=== PATIENT | female | born 1940 | race Caucasian/White ===

== ENCOUNTER → 2017-01-03 | Outpatient (CLI) | payer MEDICARE ==
[2017-01-03 11:19] LABS: CH 29.9; CHCM 33.3; HCT 41.5 % (34.0-46.0); HDW 2.79; HGB 13.5 gm/dL (11.4-16.0); MCH 29.2 pg (25.0-35.0); MCHC 32.4 g/dL (31.0-37.0); MCV 90.2 fL (80.0-100.0); Mean Platelet Volume 6.9; RDW 12.7 % (11.5-15.5); WBC 6.6 k/uL (3.8-10.6)
[2017-01-03 11:40] LABS: Anion Gap 9 mmol/L; Blood Urea Nitrogen 17 mg/dL (7-17); Calcium 9.6 mg/dL (8.4-10.2); Carbon Dioxide 27 mmol/L (22-30); Chloride 105 mmol/L (98-107); Glucose 112 mg/dL (74-99); Non-African American GFR(MDRD) >60 (>60 ml/min/1.73 sqM); Potassium 4.7 mmol/L (3.5-5.1); Sodium 141 mmol/L (137-145)
== END | disposition home or self-care (01) ==
LOC: LABWHC1 10:34
PROVIDERS: ATTEND Internal Medicine Clinical Cardiac Electrophysiology
DX: I48.0 Paroxysmal atrial fibrillation (principal)
CPT/HCPCS: 36415; 80048; 85027

== ENCOUNTER → 2018-11-16 | Outpatient (CLI) | payer MEDICARE ==
--- NOTE | 2018-11-16 11:45 | FL ---
EXAMINATION TYPE: FL barium swallow DATE OF EXAM: 11/16/2018 CLINICAL HISTORY: Nausea, reflux, abdominal pain there is increasing for one year. TECHNIQUE: A double contrast esophagram is performed utilizing air and barium. A total of 2.35 twaanda mohinder of fluoroscopic time was utilized during procedure. 104 fluoroscopic images were saved during the examination. COMPARISON: None FINDINGS: The esophagus shows intermittent abnormal motility and emptying into the stomach with inter mittent and contraction seen at the distal esophagus creating a birds beak appearance again intermitt ently only. This is demonstrated on image 22 through 28 condition to other images on the examination such as 56 through 62. The proximal esophagus becomes mildly dilated with delayed passage of contrast however the patient remains asymptomatic. No tertiary contractions are seen of the more proximal eso phagus. No evidence of hiatal hernia or stricture noted. No significant gastroesophageal reflux was seen during real time performance of this study. IMPRESSION: Intermittent distal esophageal spasm creating a persistent cystic appearance intermittent ly with delayed passage of contrast in mild proximal esophageal dilatation. Causes of esophageal or g astric malignancy, compliant nonobstructive esophageal stricture, or neuropathy/neuromuscular disorde r are possible. Endoscopy is recommended with manometry.
== END | disposition home or self-care (01) ==
LOC: RADUSWWP 08:35
PROVIDERS: ATTEND Surgery Plastic and Reconstructive Surgery
DX: K22.4 Dyskinesia of esophagus (principal); K21.9 Gastro-esophageal reflux disease without esophagitis; Z88.1 Allergy status to other antibiotic agents; Z88.8 Allergy status to other drugs, medicaments and biological substances
CPT/HCPCS: 74220

== ENCOUNTER 2018-11-29 07:34 | Day surgery (SDC) | payer MEDICARE ==
[2018-11-24 17:30] VITALS: BMI 22.8
[~2018-11-29 07:34] MED LIST: LACTATED RINGERS 1,000 ML IV ONE
[2018-11-29] MEDS ORDERED: LACTATED RINGERS 1,000 ML IV SCH (07:41)
[2018-11-29] MEDS ORDERED: LIDOCAINE 1% 20 ML VIAL (10MG/ML) FOR IV START INTRADERMA PRN (07:41)
[2018-11-29 07:47] VITALS: TEMP 98.5
[2018-11-29] MEDS ORDERED: LIDOCAINE 1% INJ 10MG/ML (20 ML MDV) ONE (08:08)
[2018-11-29] MEDS ORDERED: PROPOFOL 10 MG/ML 20 ML VIAL IV ONE (08:08)
--- NOTE | 2018-11-29 08:12 | P.GSHP ---
History of Present Illness H&P Date: 11/29/18 CHIEF COMPLAINT: GERD HISTORY OF PRESENT ILLNESS: The patient is a 78-year-old female who presents reports gastroesophageal reflux disease. Upper endoscopy was offered for further evaluation and management. PAST MEDICAL HISTORY: Please see list. PAST SURGICAL HISTORY: Please see list. MEDICATIONS: Please see list. ALLERGIES: Please see list. SOCIAL HISTORY: No illicit drug use FAMILY HISTORY: No reports of Crohn disease or ulcerative colitis. REVIEW OF ORGAN SYSTEMS: CONSTITUTIONAL: No reports of fevers or chills. GI: Denies any blood in stools or constipation. PHYSICAL EXAM: VITAL SIGNS: Stable GENERAL: Well-developed and pleasant in no acute distress. HEENT: No scleral icterus. Extraocular movements grossly intact. Moist buccal mucosa. NECK: Supple without lymphadenopathy. CHEST: Unlabored respirations. Equal bilateral excursions. CARDIOVASCULAR: Regular rate and rhythm. Distal 2+ pulses. ABDOMEN: Soft, nondistended. MUSCULOSKELETAL: No clubbing, cyanosis, or edema. ASSESSMENT: 1. Gastroesophageal reflux disease PLAN: 1. Recommend proceeding with an upper endoscopy Past Medical History Past Medical History: Atrial Fibrillation, Asthma, Diabetes Mellitus, GERD/Reflux History of Any Multi-Drug Resistant Organisms: None Reported Past Surgical History: Cardiac Ablation, Heart Catheterization, Hysterectomy, Tonsillectomy Additional Past Surgical History / Comment(s): CATARACTS-BOTH EYES See Dr. Molina's H&P. 01/17/17 Ablation Past Anesthesia/Blood Transfusion Reactions: Motion Sickness Smoking Status: Never smoker - Past Family History Mother Family Medical History: Diabetes Mellitus Daughter(s) Family Medical History: Cancer Additional Family Medical History / Comment(s): breast cancer Medications and Allergies Home Medications Medication Instructions Recorded Confirmed Type Metoprolol Tartrate [Lopressor] 25 mg PO BID 06/25/15 11/29/18 History Omeprazole 20 mg PO DAILY PRN 06/27/15 11/29/18 History Apixaban [Eliquis] 5 mg PO BID 01/13/17 11/29/18 History Albuterol Inhaler [Ventolin Hfa 1 puff INHALATION DAILY PRN 11/24/18 11/29/18 History Inhaler] Albuterol Nebulized [Ventolin 2.5 mg INHALATION BID 11/24/18 11/29/18 History Nebulized] Liraglutide [Victoza 2-Flaquito] 0.6 mg SQ DAILY 11/24/18 11/29/18 History Allergies Allergy/AdvReac Type Severity Reaction Status Date / Time No Known Allergies Allergy Verified 11/29/18 07:48 Surgical - Exam Vital Signs Temp Pulse Resp BP Pulse Ox 98.5 F 77 12 172/72 98 11/29/18 07:46 11/29/18 07:46 11/29/18 07:46 11/29/18 07:46 11/29/18 07:46
[2018-11-29 08:26] VITALS: PULSE 65
--- NOTE | 2018-11-29 08:27 | P.PCN ---
Date of Procedure: 11/29/18 Description of Procedure: PREOPERATIVE DIAGNOSIS: Gastroesophageal reflux disease. POSTOPERATIVE DIAGNOSIS: Gastritis. Gastroesophageal reflux disease. Diaphragmatic hiatal hernia OPERATION: Esophagogastroduodenoscopy with biopsies along antrum and distal esophagus SURGEON: Purvi Ames MD ANESTHESIA: MAC. INDICATIONS: The patient is a 78-year-old female who presents with a history of reflux disease. Benefits and risks of the procedure were described. Informed consent was obtained. DESCRIPTION: The patient was brought into the endoscopy suite and laid in the left lateral decubitus position. An Olympus gastroscope was passed along the posterior oropharynx down to the distal esophagus where the squamocolumnar junction was encountered at 30 cm from the incisors. The stomach was entered and no bile reflux was found. Additional findings are listed below. Biopsies with cold forceps were obtained of the antrum. The first through third portion of the duodenum was examined and unremarkable. Retroflexion of the scope confirmed Hill grade 4 lower esophageal valve. The squamocolumnar junction demonstrated LA grade C erosive esophagitis. The stomach was desufflated. The patient tolerated the procedure well. FINDINGS: Squamocolumnar junction 30 cm from the incisors. Diaphragmatic hiatus at 35 cm. Hiatal hernia, 5 cm Hill grade 4 lower esophageal valve. LA grade C erosive esophagitis. No active duodenitis. Chronic gastritis RECOMMENDATIONS: Upper endoscopy as needed. Recommend repair of hiatal hernia Plan - Discharge Summary Discharge Rx Participant: No New Discharge Prescriptions: No Action Metoprolol Tartrate [Lopressor] 25 mg PO BID Omeprazole 20 mg PO DAILY PRN PRN Reason: Heartburn Apixaban [Eliquis] 5 mg PO BID Albuterol Nebulized [Ventolin Nebulized] 2.5 mg INHALATION BID Albuterol Inhaler [Ventolin Hfa Inhaler] 1 puff INHALATION DAILY PRN PRN Reason: Dyspnea Liraglutide [Victoza 2-Flaquito] 0.6 mg SQ DAILY Discharge Medication List Metoprolol Tartrate [Lopressor] 25 mg PO BID 06/25/15 [History] Omeprazole 20 mg PO DAILY PRN 06/27/15 [History] Apixaban [Eliquis] 5 mg PO BID 01/13/17 [History] Albuterol Inhaler [Ventolin Hfa Inhaler] 1 puff INHALATION DAILY PRN 11/24/18 [History] Albuterol Nebulized [Ventolin Nebulized] 2.5 mg INHALATION BID 11/24/18 [History] Liraglutide [Victoza 2-Flaquito] 0.6 mg SQ DAILY 11/24/18 [History] Follow up Appointment(s)/Referral(s): Purvi Ames MD [STAFF PHYSICIAN] - 12/12/18 Patient Instructions/Handouts: *Surgery [facility] - (Anesthesia) Endoscopy Discharge Instructions, Hiatal Hernia (DC) Activity/Diet/Wound Care/Special Instructions: Start ELIQUIS in 3 days, 12/02/18 Discharge Disposition: HOME SELF-CARE
[2018-11-29 08:46] VITALS: RESP 18
[2018-11-29 08:50] VITALS: BP 116/52
[2018-11-29 08:53] LABS: Glucose,Whole Blood 124 mg/dL (75-99)
== END 2018-11-29 09:23 | disposition home or self-care (01) ==
LOC: ORWHC2ENDO 07:34
PROVIDERS: ATTEND Surgery Plastic and Reconstructive Surgery
DX: K29.50 Unspecified chronic gastritis without bleeding (principal); K44.9 Diaphragmatic hernia without obstruction or gangrene; K22.10 Ulcer of esophagus without bleeding; K21.0 Gastro-esophageal reflux disease with esophagitis; I10 Essential (primary) hypertension; J44.9 Chronic obstructive pulmonary disease, unspecified; I48.91 Unspecified atrial fibrillation; E11.9 Type 2 diabetes mellitus without complications; Z79.01 Long term (current) use of anticoagulants; Z79.899 Other long term (current) drug therapy; Z90.710 Acquired absence of both cervix and uterus; Z90.89 Acquired absence of other organs; Z98.41 Cataract extraction status, right eye; Z98.42 Cataract extraction status, left eye; Z80.3 Family history of malignant neoplasm of breast
CPT/HCPCS: 88305; 88312; 43239; J2001; J2704

== ENCOUNTER → 2019-01-10 | Outpatient (CLI) | payer MEDICARE ==
--- NOTE | 2019-01-10 13:12 | FL ---
EXAMINATION TYPE: FL barium swallow w video DATE OF EXAM: 01/10/2019 COMPARISON: NONE HISTORY: Rapid filling, dysphasia especially with solids TECHNIQUE: Fluoroscopy. FINDINGS: Fluoroscopic guidance was provided for the procedure performed in conjunction with the [facility] pathology department. Please see complete report forthcoming from the Speech Pathology departmen t. Various consistencies from thin liquid to solids were administered. Fluoroscopy time 1 minute 18 seconds. Number of images: 0. No aspiration was evident. There may been some transient penetration with thin liquids a questionable clinical significance during the exam. No significant pooling was observed in the vallecula. There was normal propulsion of the bolus. IMPRESSION: 1. Essentially normal swallowing study.
== END | disposition home or self-care (01) ==
LOC: RADFLMAIN 11:10
PROVIDERS: ATTEND Surgery Plastic and Reconstructive Surgery
DX: R13.10 Dysphagia, unspecified (principal)
CPT/HCPCS: 74230

== ENCOUNTER 2019-01-24 08:22 | Emergency (ER) | payer MEDICARE ==
[2019-01-24 08:28] VITALS: TEMP 97.8
[2019-01-24] MEDS: ONDANSETRON 4 MG/2 ML VIAL IVP STA (09:06)
[2019-01-24] MEDS: MORPHINE SULFATE 2 MG/ML SYRINGE IVP ONE (09:06)
--- NOTE | 2019-01-24 09:13 | ED ---
Fall HPI - General Chief Complaint: Fall Stated Complaint: fall Time Seen by Provider: 01/24/19 08:32 Source: patient, RN notes reviewed Mode of arrival: ambulatory Limitations: no limitations - History of Present Illness Initial Comments: This a 78-year-old female presents emergency Department chief complaint of upper and lower back pain. Patient states that she slipped on some steps that had ice on it yesterday. She fills directly onto her back, rib region. Patient denies any head injury no loss conscious. She states that she woke up with worsening pain in her back, ribs extension the right side. Patient states that she takes Eliquis for history of A. fib. Denies any current headache, dizziness, blurred vision, hemoptysis, hematuria, melena or hematochezia. Patient states that she did not take anything for pain. - Related Data Home Medications Medication Instructions Recorded Confirmed Metoprolol Tartrate [Lopressor] 25 mg PO BID 06/25/15 01/24/19 Apixaban [Eliquis] 5 mg PO DAILY 01/13/17 01/24/19 Albuterol Nebulized [Ventolin 2.5 mg INHALATION BID 11/24/18 01/24/19 Nebulized] Liraglutide [Victoza 2-Flaquito] 0.6 mg SQ DAILY 11/24/18 01/24/19 Previous Rx's Medication Instructions Recorded Omeprazole 40 mg PO DAILY #90 capsule. 11/29/18 Hydrocodone/Acetaminophen [[place] 1 tab PO Q6HR PRN #12 tab 01/24/19 5-325] Allergies Allergy/AdvReac Type Severity Reaction Status Date / Time No Known Allergies Allergy Verified 01/24/19 10:04 Review of Systems ROS Statement: Those systems with pertinent positive or pertinent negative responses have been documented in the HPI. ROS Other: All systems not noted in ROS Statement are negative. Past Medical History Past Medical History: Atrial Fibrillation, Asthma, GERD/Reflux, Hypertension, Thyroid Disorder Additional Past Medical History / Comment(s): "esophagus doesn't work" History of Any Multi-Drug Resistant Organisms: None Reported Past Surgical History: Ablation, Heart Catheterization, Hysterectomy, Tonsillectomy Additional Past Surgical History / Comment(s): EGD Past Anesthesia/Blood Transfusion Reactions: Motion Sickness Past Psychological History: No Psychological Hx Reported Smoking Status: Never smoker Past Alcohol Use History: Rare Past Drug Use History: None Reported - Past Family History Mother Family Medical History: Diabetes Mellitus Daughter(s) Family Medical History: Cancer Additional Family Medical History / Comment(s): breast cancer General Exam Limitations: no limitations General appearance: alert, in no apparent distress Head exam: Present: atraumatic, normocephalic, normal inspection Eye exam: Present: normal appearance, PERRL, EOMI. Absent: scleral icterus, conjunctival injection, periorbital swelling ENT exam: Present: normal exam, normal oropharynx, mucous membranes moist, TM's normal bilaterally, normal external ear exam Neck exam: Present: normal inspection, full ROM. Absent: tenderness, meningismus, lymphadenopathy Respiratory exam: Present: normal lung sounds bilaterally, chest wall tenderness (Mild right lateral to posterior). Absent: respiratory distress, wheezes, rales, rhonchi, stridor Cardiovascular Exam: Present: regular rate, normal rhythm, normal heart sounds. Absent: systolic murmur, diastolic murmur, rubs, gallop, clicks GI/Abdominal exam: Present: soft. Absent: distended, tenderness, guarding, rebound Extremities exam: Present: normal inspection, full ROM, normal capillary refill. Absent: tenderness, pedal edema, joint swelling, calf tenderness Back exam: Present: full ROM, tenderness, paraspinal tenderness. Absent: CVA tenderness (R), CVA tenderness (L), vertebral tenderness Neurological exam: Present: alert, oriented X3, CN II-XII intact, reflexes normal. Absent: motor sensory deficit Skin exam: Present: warm, dry, intact, normal color. Absent: rash Course Vital Signs 01/24/19 01/24/19 01/24/19 08:23 08:28 09:28 Temperature 97.8 F Pulse Rate 60 Respiratory 18 20 20 Rate Blood Pressure 155/80 O2 Sat by Pulse 100 Oximetry 01/24/19 10:00 Temperature Pulse Rate 75 Respiratory 20 Rate Blood Pressure 133/70 O2 Sat by Pulse 95 Oximetry Medical Decision Making - Medical Decision Making Patient's labwork is unremarkable. CT shows evidence of rib fractures 8 through 10 on the right. Patient is currently stable she feels comfortable discharged with pain medication, incentive spirometry. She'll follow-up with her PCP and return for any worsening symptoms. - Lab Data Result diagrams: 01/24/19 09:00 01/24/19 09:00 Lab Results 01/24/19 01/24/19 Range/Units 09:00 09:00 WBC 8.2 (3.8-10.6) k/uL RBC 4.50 (3.80-5.40) m/uL Hgb 13.8 (11.4-16.0) gm/dL Hct 40.0 (34.0-46.0) % MCV 89.0 (80.0-100.0) fL MCH 30.6 (25.0-35.0) pg MCHC 34.4 (31.0-37.0) g/dL RDW 13.4 (11.5-15.5) % Plt Count 218 (150-450) k/uL Neutrophils % 75 % Lymphocytes % 18 % Monocytes % 5 % Eosinophils % 1 % Basophils % 0 % Neutrophils # 6.1 (1.3-7.7) k/uL Lymphocytes # 1.5 (1.0-4.8) k/uL Monocytes # 0.4 (0-1.0) k/uL Eosinophils # 0.1 (0-0.7) k/uL Basophils # 0.0 (0-0.2) k/uL Sodium 140 (137-145) mmol/L Potassium 4.5 (3.5-5.1) mmol/L Chloride 105 (98-107) mmol/L Carbon Dioxide 25 (22-30) mmol/L Anion Gap 10 mmol/L BUN 18 H (7-17) mg/dL Creatinine 0.70 (0.52-1.04) mg/dL Est GFR (CKD-EPI)AfAm >90 (>60 ml/min/1.73 sqM) Est GFR (CKD-EPI)NonAf 84 (>60 ml/min/1.73 sqM) Glucose 123 H (74-99) mg/dL Calcium 10.1 (8.4-10.2) mg/dL Total Bilirubin 0.6 (0.2-1.3) mg/dL AST 23 (14-36) U/L ALT 19 (9-52) U/L Alkaline Phosphatase 69 (38-126) U/L Total Protein 7.6 (6.3-8.2) g/dL Albumin 4.4 (3.5-5.0) g/dL Disposition Clinical Impression: Fall, Multiple fractures of ribs of right side Disposition: HOME SELF-CARE Condition: Stable Instructions (If sedation given, give patient instructions): Rib Fracture (ED) Additional Instructions: Please return to the Emergency Department if symptoms worsen or any other concerns. Prescriptions: Hydrocodone/Acetaminophen [[place] 5-325] 1 tab PO Q6HR PRN #12 tab PRN Reason: Pain Is patient prescribed a controlled substance at d/c from ED?: No Referrals: Landen Weiss DO [Primary Care Provider] - 1-2 days Time of Disposition: 10:48
[2019-01-24 09:32] LABS: Basophils % (A) 0 %; Eosinophils # (A) 0.1 k/uL (0-0.7); Eosinophils % (A) 1 %; HGB 13.8 gm/dL (11.4-16.0); Lymphocytes # (A) 1.5 k/uL (1.0-4.8); Lymphocytes % (A) 18 %; MCH 30.6 pg (25.0-35.0); MCHC 34.4 g/dL (31.0-37.0); Mean Platelet Volume 7.9; Monocytes # (A) 0.4 k/uL (0-1.0); Monocytes % (A) 5 %; Neutrophils # (A) 6.1 k/uL (1.3-7.7); Neutrophils % (A) 75 %; Platelet Count 218 k/uL (150-450); RDW 13.4 % (11.5-15.5); WBC 8.2 k/uL (3.8-10.6)
[2019-01-24 09:38] LABS: ALT 19 U/L (9-52); AST 23 U/L (14-36); African American GFR (CKD) >90 (>60 ml/min/1.73 sqM); Albumin 4.4 g/dL (3.5-5.0); Alkaline Phosphatase 69 U/L (38-126); Anion Gap 10 mmol/L; Blood Urea Nitrogen 18 mg/dL (7-17); Calcium 10.1 mg/dL (8.4-10.2); Carbon Dioxide 25 mmol/L (22-30); Chloride 105 mmol/L (98-107); Glucose 123 mg/dL (74-99); Non-African American GFR(CKD) 84 (>60 ml/min/1.73 sqM); Potassium 4.5 mmol/L (3.5-5.1); Sodium 140 mmol/L (137-145); Total Bilirubin 0.6 mg/dL (0.2-1.3); Total Protein 7.6 g/dL (6.3-8.2)
[2019-01-24 09:48] VITALS: RESP 20
[2019-01-24 10:11] VITALS: PULSE 75
--- NOTE | 2019-01-24 10:34 | CT ---
EXAMINATION TYPE: CT ChestAbdPelvis w con DATE OF EXAM: 01/24/2019 COMPARISON: None HISTORY: fall, right side bruising/pain, on blood thinner CT DLP: 838.5 mGycm CONTRAST: Contrast enhanced Trauma CT of the Chest, Abdomen and Pelvis is performed with IV Contrast, patient i njected with 100 mL of Isovue 370. Chest: LUNGS: There is no evidence for pneumothorax. The lungs are clear and free of focal contusion or ate lectasis. No pleural effusion MEDIASTINUM: Thoracic aorta is of normal caliber without CT evidence to suggest traumatic induced ao rtic injury. No mediastinal fluid or blood. No pericardial fluid or cardia abnormality. HILAR STRUCTURES: No evidence for mass. No hilar adenopathy is appreciated. OTHER: No significant abnormality. OSSEOUS: Right-sided rib fractures of the right ribs 8 through 10. Mild pleural thickening. No signif icant hematoma. CT ABDOMEN AND PELVIS FINDINGS: LIVER/GB: No focal laceration, contusion or subcapsular hemorrhage. No calcified gallstones. No s pace occupying hepatic lesion. Biliary tree is of normal caliber. PANCREAS: No evidence for transection. No inflammation. No distinct mass. SPLEEN: No focal laceration, contusion or subcapsular hemorrhage. ADRENALS: No hemorrhage. No nodule. No thickening. KIDNEYS/BLADDER: No focal laceration, contusion or subcapsular hemorrhage. No hydronephrosis. No n ephrolithiasis. No disctinct renal mass. BOWEL: Bowel is intact. No evidence for pneumoperitoneum. GENITAL ORGANS: No gross abnormality. LYMPH NODES: No greater than 1cm abdominal or pelvic lymph nodes areappreciated. AORTA: No traumatic aortic injury visualized. OSSEOUS STRUCTURES: No displaced fracture seen. OTHER: No evidence for hemoperitoneum. IMPRESSION: 1. Right-sided rib fractures of the right ribs 8 through 10. Mild pleural thickening. No significant hematoma. No pulmonary contusion or pneumothorax. 2. No evidence for traumatic injury to the abdomen or pelvis.
[2019-01-24] MEDS: MORPHINE SULFATE 4 MG/ML SYRINGE IVP STA (10:58)
[2019-01-24 11:08] VITALS: BP 130/88
== END 2019-01-24 11:17 | disposition home or self-care (01) ==
LOC: EC 08:22
DX: S22.41XA Multiple fractures of ribs, right side, initial encounter for closed fracture (principal); I48.91 Unspecified atrial fibrillation; J45.909 Unspecified asthma, uncomplicated; I10 Essential (primary) hypertension; Z79.01 Long term (current) use of anticoagulants; Z79.84 Long term (current) use of oral hypoglycemic drugs; Z79.899 Other long term (current) drug therapy; W00.1XXA Fall from stairs and steps due to ice and snow, initial encounter; Y92.009 Unspecified place in unspecified non-institutional (private) residence as the place of occurrence of the external cause
CPT/HCPCS: 36415; 80053; 85025; 71260; 74177; 99284; 96374; 96375; 96376; J2270 ×2; J2405; Q9967

== ENCOUNTER 2019-07-13 14:42 | Emergency (ER) | payer MEDICARE ==
[2019-07-13 14:58] VITALS: TEMP 97.8
[2019-07-13] MEDS ORDERED: ASPIRIN 81 MG PO STA (15:20)
--- NOTE | 2019-07-13 15:33 | ED ---
General Adult HPI - General Chief complaint: Recheck/Abnormal Lab/Rx Stated complaint: dizzy spells Time Seen by Provider: 07/13/19 15:07 Source: patient, family Mode of arrival: ambulatory Limitations: no limitations - History of Present Illness Initial comments: Dictation was produced using E la Carte dictation software. please excuse any grammatical, word or spelling errors. This patient was cared for during a federal and state declared state of emergency secondary to Covid 19 Chief Complaint: 79-year-old female past medical history of atrial fibrillation, dysphasia, hypertension presents with abnormal EKG. History of Present Illness: Patient 79-year-old female she presents today with abnormal EKG. Over the last 2 months patient has been suffering from dizziness especially with standing. She went to her primary care physician's office to be evaluated. She has known history of carotid artery disease. She does not know how much of a block and she has. She was concerned about her dizziness and preferred to follow-up with her job estimator however because there was difficulty scheduling appointment she instead went to go see her primary care physician. An EKG was performed showing abnormalities. Her primary care andi malik did not like how it looked and made patient come to the emergency department. Patient reports that her primary care physician compared to previous EKG. Patient was told that there was abnormalities that warranted emergency room evaluation. Patient has history of atrial fibrillation. She r eports that she had an ablation procedure however still continues to be on apixaban. She's been suffering from lightheadedness only when standing. She states it doesn't always occur with standing, only sometimes depending on the day. Patient denies any chest symptoms. No numbness or paresthesias to the arms or legs. Denies any numbness to the jaw or shoulder. No associated diaphoresis. Patient currently feels asymptomatic. Denies any weakness to the arms or legs. The ROS documented in this emergency department record has been reviewed and confirmed by me. Those systems with pertinent positive or negative responses have been documented in the HPI. All other systems are other negative and/or noncontributory. PHYSICAL EXAM: General Impression: Alert and oriented x3, not in acute distress HEENT: Normocephalic atraumatic, extra-ocular movements intact, pupils equal and reactive to light bilaterally, mucous membranes moist. Cardiovascular: Heart regular rate and rhythm Chest: Able to complete full sentences, no retractions, no tachypnea Abdomen: abdomen soft, non-tender, non-distended, no organomegaly Musculoskeletal: Pulses present and equal in all extremities, no peripheral edema Motor: no focal deficits noted Neurological: CN II-XII grossly intact, no focal motor or sensory deficits noted Skin: Intact with no visualized rashes Psych: Normal affect and mood ED course: 79-year-old female sent in from her primary care physician's office for abnormal EKG. Signs upon arrival shows heart rate of 110, worse vital signs within acceptable limits. EKG shows diffuse ST segment elevations in 2-3 aVF and V3 to V6. Is also T-wave inversion in aVL. When compared to EKG from 01/18/2017 this appears to be patient's baseline. At this point considering EKG appears to be baseline and patient not having any chest symptoms whatsoever highly doubt that EKG represents any acute cardiac processes. Furthermore, patient's dizziness according the patient is only positional. She has known carotid artery disease. Perhaps this is symptoms of her carotid artery disease that exacerbated with standing from a sitting position. Repeat EKG was performed approximately 30 minutes after initial EKG showed no dynamic changes. Ventricular rate 63, normal sinus rhythm,. Interval 200, QRS 86, QTC 421 EKG appears to be baseline. Laboratory evaluation obtained. CBC, coag panel, metabolic panel is unremarkable. Cardiac enzymes negative. Urinalysis x-rays nonacute. Orthostatic vital signs were obtained. There did appear to be some decrease in blood pressure with standing. This is likely attribute it to patient's metoprolol. At this point suggested that perhaps she symptoms are secondary to metoprolol. At this point considering patient symptoms are chronic and with mild symptoms she is advised to follow-up with her job estimator and primary care physician for adjustments to her medications. She is agreeable for discharge. At this point no high-risk features identified. Patient will be discharge. return parameters discussed. EKG interpretation: Ventricular rate 60, normal sinus rhythm,. Interval 98, QRS 90, QTC 416. No MA prolongation, no QTC prolongation, no ST or T-wave changes noted. EKG compared to 01/18/2017 showing no changes. Overall, this EKG is unremarkable - Related Data Home Medications Medication Instructions Recorded Confirmed Metoprolol Tartrate [Lopressor] 25 mg PO BID 06/25/15 01/24/19 Apixaban [Eliquis] 5 mg PO DAILY 01/13/17 01/24/19 Albuterol Nebulized [Ventolin 2.5 mg INHALATION BID 11/24/18 01/24/19 Nebulized] Liraglutide [Victoza 2-Flaquito] 0.6 mg SQ DAILY 11/24/18 01/24/19 Previous Rx's Medication Instructions Recorded Omeprazole 40 mg PO DAILY #90 capsule. 11/29/18 Hydrocodone/Acetaminophen [Faucett 1 tab PO Q6HR PRN #12 tab 01/24/19 5-325] Allergies Allergy/AdvReac Type Severity Reaction Status Date / Time No Known Allergies Allergy Verified 07/13/19 14:58 Review of Systems ROS Statement: Those systems with pertinent positive or pertinent negative responses have been documented in the HPI. ROS Other: All systems not noted in ROS Statement are negative. Past Medical History Past Medical History: Atrial Fibrillation, Asthma, GERD/Reflux, Hypertension, Thyroid Disorder Additional Past Medical History / Comment(s): "esophagus doesn't work" History of Any Multi-Drug Resistant Organisms: None Reported Past Surgical History: Ablation, Heart Catheterization, Hysterectomy, Tonsillectomy Additional Past Surgical History / Comment(s): EGD Past Anesthesia/Blood Transfusion Reactions: Motion Sickness Past Psychological History: No Psychological Hx Reported Smoking Status: Never smoker Past Alcohol Use History: Rare Past Drug Use History: None Reported - Past Family History Mother Family Medical History: Diabetes Mellitus Daughter(s) Family Medical History: Cancer Additional Family Medical History / Comment(s): breast cancer General Exam Limitations: no limitations Course Vital Signs 07/13/19 07/13/19 14:53 15:36 Temperature 97.8 F Pulse Rate 110 H Pulse Rate [ 88 Right Sitting] Pulse Rate [ 91 Right Standing] Pulse Rate [ 89 Right Supine] Respiratory 18 Rate Blood Pressure 146/55 Blood Pressure 152/68 [Right Arm Sitting] Blood Pressure 137/82 [Right Arm Standing] Blood Pressure 163/75 [Right Arm Supine] O2 Sat by Pulse 98 Oximetry Medical Decision Making - Lab Data Result diagrams: 07/13/19 15:31 07/13/19 15:31 Lab Results 07/13/19 07/13/19 07/13/19 Range/Units 15:31 15:31 15:31 WBC 5.5 (3.8-10.6) k/uL RBC 4.29 (3.80-5.40) m/uL Hgb 12.6 (11.4-16.0) gm/dL Hct 39.6 (34.0-46.0) % MCV 92.1 (80.0-100.0) fL MCH 29.2 (25.0-35.0) pg MCHC 31.7 (31.0-37.0) g/dL RDW 12.9 (11.5-15.5) % Plt Count 212 (150-450) k/uL Neutrophils % 58 % Lymphocytes % 30 % Monocytes % 5 % Eosinophils % 5 % Basophils % 1 % Neutrophils # 3.2 (1.3-7.7) k/uL Lymphocytes # 1.6 (1.0-4.8) k/uL Monocytes # 0.3 (0-1.0) k/uL Eosinophils # 0.3 (0-0.7) k/uL Basophils # 0.0 (0-0.2) k/uL PT 10.3 (9.0-12.0) sec INR 1.0 (<1.2) APTT 25.6 (22.0-30.0) sec Sodium 138 (137-145) mmol/L Potassium 4.2 (3.5-5.1) mmol/L Chloride 103 (98-107) mmol/L Carbon Dioxide 28 (22-30) mmol/L Anion Gap 7 mmol/L BUN 16 (7-17) mg/dL Creatinine 0.57 (0.52-1.04) mg/dL Est GFR (CKD-EPI)AfAm >90 (>60 ml/min/1.73 sqM) Est GFR (CKD-EPI)NonAf 90 (>60 ml/min/1.73 sqM) Glucose 83 (74-99) mg/dL Calcium 9.3 (8.4-10.2) mg/dL Magnesium 2.1 (1.6-2.3) mg/dL Total Bilirubin 0.6 (0.2-1.3) mg/dL AST 23 (14-36) U/L ALT 15 (4-34) U/L Alkaline Phosphatase 57 (38-126) U/L Troponin I (0.000-0.034) ng/mL Total Protein 6.9 (6.3-8.2) g/dL Albumin 4.2 (3.5-5.0) g/dL 07/13/19 Range/Units 15:31 WBC (3.8-10.6) k/uL RBC (3.80-5.40) m/uL Hgb (11.4-16.0) gm/dL Hct (34.0-46.0) % MCV (80.0-100.0) fL MCH (25.0-35.0) pg MCHC (31.0-37.0) g/dL RDW (11.5-15.5) % Plt Count (150-450) k/uL Neutrophils % % Lymphocytes % % Monocytes % % Eosinophils % % Basophils % % Neutrophils # (1.3-7.7) k/uL Lymphocytes # (1.0-4.8) k/uL Monocytes # (0-1.0) k/uL Eosinophils # (0-0.7) k/uL Basophils # (0-0.2) k/uL PT (9.0-12.0) sec INR (<1.2) APTT (22.0-30.0) sec Sodium (137-145) mmol/L Potassium (3.5-5.1) mmol/L Chloride (98-107) mmol/L Carbon Dioxide (22-30) mmol/L Anion Gap mmol/L BUN (7-17) mg/dL Creatinine (0.52-1.04) mg/dL Est GFR (CKD-EPI)AfAm (>60 ml/min/1.73 sqM) Est GFR (CKD-EPI)NonAf (>60 ml/min/1.73 sqM) Glucose (74-99) mg/dL Calcium (8.4-10.2) mg/dL Magnesium (1.6-2.3) mg/dL Total Bilirubin (0.2-1.3) mg/dL AST (14-36) U/L ALT (4-34) U/L Alkaline Phosphatase (38-126) U/L Troponin I <0.012 (0.000-0.034) ng/mL Total Protein (6.3-8.2) g/dL Albumin (3.5-5.0) g/dL Disposition Clinical Impression: Dizziness, Abnormal EKG Disposition: HOME SELF-CARE Condition: Good Instructions (If sedation given, give patient instructions): Dizziness (ED) Is patient prescribed a controlled substance at d/c from ED?: No Referrals: Landen Weiss DO [Primary Care Provider] - 1-2 days Time of Disposition: 17:12
[2019-07-13 15:41] LABS: Basophils % (A) 1 %; Eosinophils # (A) 0.3 k/uL (0-0.7); Eosinophils % (A) 5 %; HCT 39.6 % (34.0-46.0); HGB 12.6 gm/dL (11.4-16.0); Lymphocytes # (A) 1.6 k/uL (1.0-4.8); Lymphocytes % (A) 30 %; MCH 29.2 pg (25.0-35.0); MCHC 31.7 g/dL (31.0-37.0); MCV 92.1 fL (80.0-100.0); Mean Platelet Volume 7.6; Monocytes # (A) 0.3 k/uL (0-1.0); Monocytes % (A) 5 %; Neutrophils # (A) 3.2 k/uL (1.3-7.7); Neutrophils % (A) 58 %; Platelet Count 212 k/uL (150-450); RBC 4.29 m/uL (3.80-5.40); RDW 12.9 % (11.5-15.5); WBC 5.5 k/uL (3.8-10.6)
[2019-07-13 15:48] LABS: Partial Thromboplastin Time 25.6 sec (22.0-30.0); Prothrombin Time 10.3 sec (9.0-12.0)
[2019-07-13 15:50] LABS: ALT 15 U/L (4-34); AST 23 U/L (14-36); African American GFR (CKD) >90 (>60 ml/min/1.73 sqM); Albumin 4.2 g/dL (3.5-5.0); Alkaline Phosphatase 57 U/L (38-126); Anion Gap 7 mmol/L; Blood Urea Nitrogen 16 mg/dL (7-17); Calcium 9.3 mg/dL (8.4-10.2); Carbon Dioxide 28 mmol/L (22-30); Chloride 103 mmol/L (98-107); Glucose 83 mg/dL (74-99); Magnesium 2.1 mg/dL (1.6-2.3); Non-African American GFR(CKD) 90 (>60 ml/min/1.73 sqM); Potassium 4.2 mmol/L (3.5-5.1); Sodium 138 mmol/L (137-145); Total Bilirubin 0.6 mg/dL (0.2-1.3); Total Protein 6.9 g/dL (6.3-8.2)
--- NOTE | 2019-07-13 15:58 | XR ---
EXAMINATION TYPE: XR chest 2V DATE OF EXAM: 07/13/2019 COMPARISON: 05/21/2013 HISTORY: 79-year-old female with chest pain TECHNIQUE: PA and lateral views FINDINGS: Cardiomediastinal silhouette, aorta, and pulmonary vasculature within normal limits. Mild right apica l pleural-parenchymal scarring. No consolidation or pleural effusion. IMPRESSION: Chronic changes without acute cardiopulmonary process.
[2019-07-13 17:42] VITALS: BP 132/76; PULSE 77; RESP 16
== END 2019-07-13 17:37 | disposition home or self-care (01) ==
LOC: EC 14:42
DX: R94.31 Abnormal electrocardiogram [ECG] [EKG] (principal); R42 Dizziness and giddiness; I48.91 Unspecified atrial fibrillation; I10 Essential (primary) hypertension; J45.909 Unspecified asthma, uncomplicated; Z79.01 Long term (current) use of anticoagulants; Z79.51 Long term (current) use of inhaled steroids; Z79.899 Other long term (current) drug therapy
CPT/HCPCS: 36415; 71046; 80053; 83735; 84484; 85025; 85610; 85730; 93005; 99285

== ENCOUNTER → 2019-12-17 | Outpatient (CLI) | payer MEDICARE ==
--- NOTE | 2019-12-17 09:13 | BD ---
EXAMINATION TYPE: Axial Bone Density DATE OF EXAM: 12/17/2019 COMPARISON: 01/27/2012 CLINICAL HISTORY: Postmenopausal female. Disorder of bone density. Height: 62.2 IN Weight: 144 LBS FRAX RISK QUESTIONS: History of Fracture in Adulthood: RIB FX AGE 78; FIBULA FX AGE 70 RISK FACTORS HISTORY OF: Active: MODERATE Postmenopausal woman: AGE 47 MEDICATIONS: Additional Medications: METOPROLOL, ELIQUIS,OMEPROZOLE EXAM MEASUREMENTS: Bone mineral densitometry was performed using the [employer] System. Bone mineral density as measured about the Lumbar spine is: ----- L1-L4(G/cm2): 0.921 T Score Values are as follows: ----- L2: -2.8 ----- L3: -2.2 ----- L4: -1.4 ----- L1-L4: -2.2 Bone mineral density has: Increased 0.2% since study of: 01/27/2012 Bone mineral density about the R hip (g/cm2): 0.797 Bone mineral density about the L hip (g/cm2): 0.850 T Score values are as follows: -----R Neck: -1.7 -----L Neck: -1.4 -----R Total: -1.1 -----L Total: -1.0 Bone mineral density has: Decreased -2.8% since study of: 01/27/2012 IMPRESSION: Osteopenia (T Score between -2.5 and -1) remains present. There remains slightly increased risk of fracture and the patient may be considered for treatment. Re-Screen 2-5 years. NOTE: T-SCORE=SD OF THE YOUNG ADULT MEAN.
== END | disposition home or self-care (01) ==
LOC: RADBDWWP 08:10
PROVIDERS: ATTEND Family Medicine
DX: M85.80 Other specified disorders of bone density and structure, unspecified site (principal)
CPT/HCPCS: 77080

== ENCOUNTER → 2020-07-01 | Outpatient (CLI) | payer MEDICARE ==
[~2020-07-01] MED LIST changes: -LACTATED RINGERS 1,000 ML IV ONE; +SODIUM CHLORIDE 0.9% 500 ML 500 ML in EMPTY BAG 1 BAG IV PRN; +ZOLEDRONIC ACID 5 MG in SODIUM CHLORIDE 0.9% 100 ML IV NR
[2020-07-01 09:51] VITALS: BP 97/63; PULSE 78; RESP 16; TEMP 98.3
== END ==
LOC: PROCWHC3 09:38
PROVIDERS: ATTEND Family Medicine
DX: M81.0 Age-related osteoporosis without current pathological fracture (principal)
CPT/HCPCS: 96365; J3489

== ENCOUNTER → 2021-11-02 | Outpatient (CLI) | payer MEDICARE ==
[2021-11-02 10:33] VITALS: BP 156/65; PULSE 57; RESP 16; TEMP 97.9
== END ==
LOC: PROCWHC3 10:26
PROVIDERS: ATTEND Family Medicine
DX: M85.80 Other specified disorders of bone density and structure, unspecified site (principal)
CPT/HCPCS: 96365; J3489

== ENCOUNTER → 2022-11-19 | Outpatient (CLI) | payer MEDICARE ==
--- NOTE | 2022-11-19 13:07 | CT ---
EXAMINATION TYPE: CT knee RT wo con DATE OF EXAM: 11/19/2022 COMPARISON: None HISTORY: anterior right knee pain after fall CT DLP: 380.2 mGycm Automated exposure control for dose reduction was used. FINDINGS: There is a hairline minimally displaced fracture through the medial margin lateral tibial plateau, in tercondylar notch and extending into the medial tibial plateau. Fracture line extends from the tibial plateau diagonally along the posterior and medial epiphysis of the tibia to the posterior cortical m argin. No significant depression of the tibial plateau. There is subcutaneous edema. There is a moderate suprapatellar bursal fluid collection. Mild diffuse osteopenia with mild narrowin g patellofemoral and medial compartment knee joint. The report Dr. Xiong was called to referring c samuelician 1:01 PM 11/19/2022. IMPRESSION: THERE IS A HAIRLINE MINIMALLY DISPLACED FRACTURE ORIGINATING JUST LATERAL TO THE INTERCONDYLAR NOTCH AT THE LEVEL OF THE MEDIAL PORTION OF THE LATERAL TIBIAL PLATEAU EXTENDING INTO THE INTERCONDYLAR NOT CH AND MEDIAL TIBIAL PLATEAU. THE FRACTURE LINE EXTENDING POSTERIORLY TO THE POSTERIOR CORTEX OF THE MEDIAL TIBIAL. NO SIGNIFICANT DEPRESSION OF THE TIBIAL PLATEAU.
== END | disposition home or self-care (01) ==
LOC: RADCTMAIN 12:00
PROVIDERS: ATTEND Orthopaedic Surgery
DX: S72.461A Displaced supracondylar fracture with intracondylar extension of lower end of right femur, initial encounter for closed fracture (principal)

== ENCOUNTER → 2023-09-05 | Outpatient (CLI) | payer MEDICARE ==
--- NOTE | 2023-09-06 10:02 | BD ---
EXAMINATION TYPE: Axial Bone Density DATE OF EXAM: 09/05/2023 CLINICAL HISTORY: 83 years old Female. ICD-10 CODE: R13.10 DYSPHAGIA, UNSPECIFIED Height: 62.5" Weight: 126lbs FRAX RISK QUESTIONS: Alcohol (3 or more units per day): No Family History (Parent hip fracture): No Glucocorticoids (More than 3mos): No (Ex: prednisone, prednisolone, methylprednisolone, dexamethasone, and hydrocortisone). History of Fracture in Adulthood: Yes Secondary Osteoporosis: 1. Type 1 Diabetes: No 2. Hyperthyroidism: No 3. Menopause before 45: No 4. Malnutrition: No 5. Chronic liver disease: No Rheumatoid Arthritis: No Current Tobacco Use: No RISK FACTORS HISTORY OF: Hip Fracture (Right/Left): No Spine Fracture: No History of Wrist Fracture: No Surgery to Spine/Hip(right/left)/Wrist (right/left): No MEDICATIONS: Thyroid Medications: No Osteoporosis Medications: No EXAM MEASUREMENTS: Bone mineral densitometry was performed using the [employer] System. Bone mineral density as measured about the Lumbar spine is: ----- L1-L4(G/cm2): 0.956 T Score Values are as follows: ----- L1: -1.9 ----- L2: -2.6 ----- L3: -2.1 ----- L4: -1.2 ----- L1-L4: -1.9 Z Score Values are as follows: ----- L1: 0.2 ----- L2: -0.5 ----- L3: 0.1 ----- L4: 0.9 ----- L1-L4: 0.3 Bone mineral density has: increased 3.8% since study of: 12/17/2019 Bone mineral density about the R hip (g/cm2): 0.855 Bone mineral density about the L hip (g/cm2): 0.835 T Score values are as follows: -----R Neck: -1.3 -----L Neck: -1.3 -----R Total: -1.2 -----L Total: -1.4 Z Score values are as follows: -----R Neck: 1.1 -----L Neck: 1.1 -----R Total: 1.0 -----L Total: 0.9 Bone mineral density has: decreased -3.4% since study of: 12/17/2019 FRAX%s: The graph provided illustrates a 17.5% chance for a major osteoporotic fx and a 3.8% chance f or the hips probability for fx in 10 years time. IMPRESSION: Osteopenia (T Score between -2.5 and -1). There is slightly increased risk of fracture and the patient may be considered for treatment. Re-Screen 2-5 years. NOTE: T-SCORE=SD OF THE YOUNG ADULT MEAN.
== END | disposition home or self-care (01) ==
LOC: RADBDWWP 15:28
PROVIDERS: ATTEND Family Medicine
DX: M81.0 Age-related osteoporosis without current pathological fracture (principal); M85.89 Other specified disorders of bone density and structure, multiple sites
CPT/HCPCS: 77080

== ENCOUNTER 2024-01-10 05:38 | Day surgery (SDC) | payer MEDICARE ==
[2024-01-09 09:40] VITALS: BMI 21.9
[2024-01-10] MEDS ORDERED: ALPRAZolam 0.5 MG TAB PO PRN (05:56)
[2024-01-10] MEDS ORDERED: NITROGLYCERIN SL TABS 0.4 MG TAB SUBLINGUAL PRN (05:56)
[2024-01-10] MEDS ORDERED: HEPARIN SODIUM,PORCINE (1 ML) 2,500 UNIT in SODIUM CHLORIDE 0.9% 250 ML IRRIGATION PRN (05:56)
[2024-01-10] MEDS ORDERED: HEPARIN SODIUM,PORCINE 10,000 UNIT in SODIUM CHLORIDE 0.9% 1,000 ML IRRIGATION PRN (05:56)
[2024-01-10] MEDS ORDERED: ATORVASTATIN 80 MG TAB PO STA (05:56)
[2024-01-10] MEDS ORDERED: ALPRAZolam 0.25 MG TAB PO PRN (05:56)
[2024-01-10 06:32] LABS: Glucose,Whole Blood 146 mg/dL (70-110)
[2024-01-10] MEDS: SODIUM CHLORIDE 0.9% 1,000 ML in EMPTY BAG 1 BAG IV SCH (06:34)
[2024-01-10 06:36] VITALS: RESP 18; TEMP 98.1
[2024-01-10] MEDS: IV FLUID CONTINUATION 1,000 ML IV ONE (06:36)
[2024-01-10 06:40] LABS: Basophils % (A) 0 %; Eosinophils # (A) 0.2 k/uL (0-0.7); Eosinophils % (A) 4 %; HCT 34.7 % (34.0-46.0); HGB 10.7 gm/dL (11.4-16.0); Hypochromasia Marked; Lymphocytes # (A) 1.6 k/uL (1.0-4.8); Lymphocytes % (A) 32 %; MCH 25.8 pg (25.0-35.0); MCHC 30.8 g/dL (31.0-37.0); MCV 83.6 fL (80.0-100.0); Mean Platelet Volume 7.9; Monocytes # (A) 0.2 k/uL (0-1.0); Monocytes % (A) 5 %; Neutrophils # (A) 2.8 k/uL (1.3-7.7); Neutrophils % (A) 57 %; Platelet Count 195 k/uL (150-450); RBC 4.15 m/uL (3.80-5.40); WBC 4.9 k/uL (3.8-10.6)
[2024-01-10] MEDS: ASPIRIN 325 MG TAB PO STA (06:54)
[2024-01-10 06:58] LABS: African American GFR (CKD) >90 (>60 ml/min/1.73 sqM); Anion Gap 6 mmol/L; Blood Urea Nitrogen 17 mg/dL (7-17); Calcium 9.2 mg/dL (8.4-10.2); Carbon Dioxide 29 mmol/L (22-30); Chloride 104 mmol/L (98-107); Glucose 136 mg/dL (74-99); Non-African American GFR(CKD) 80 (>60 ml/min/1.73 sqM); Potassium 3.9 mmol/L (3.5-5.1); Sodium 139 mmol/L (137-145)
[2024-01-10] MEDS: IV FLUID CONTINUATION 650 ML IV ONE (08:07)
[2024-01-10] MEDS: BENZOCAINE SPRAY 1 EACH MM ONE (08:23)
[2024-01-10] MEDS: MIDAZOLAM 2 MG/2 ML VIAL IVP ONE (08:23)
[2024-01-10] MEDS: fentaNYL (PF) 50 MCG/ML 2 ML AMP IVP ONE (08:26)
[2024-01-10] MEDS: MIDAZOLAM HCL 10 MG/10 ML VIAL IVP ONE (08:28)
--- NOTE | 2024-01-10 08:36 | P.PCN ---
Date of Procedure: 01/10/24 Operative Findings: TRANSESOPHAGEAL ECHOCARDIOGRAM SCAFFOLD ERECTOR: PRASANNA DURAN MD, RPVI INDICATION: Valvular heart disease with aortic stenosis and mitral regurgitation SEDATION: Conscious sedation COMPLICATION: None LEVEL OF SEDATION Moderate with sedation length of 16 minutes PROCEDURE DESCRIPTION: After obtaining an informed consent, the patient was brought to transesophageal echocardiogram room. Pulse oximetry and heart monitors were attached to the patient. The patient throat was sprayed using lidocaine. The patient was turned into left lateral position. After that a bite guard was placed. After an appropriate conscious sedation was initiated, the transesophageal echocardiogram was advanced through a bite guard into the mid esophagus. A 2-D echocardiogram images, color Doppler images, continuous wave images, pulse-wave images, of various cardiac structure were performed. After that the transesophageal echocardiogram probe was advanced into the stomach and fixed to obtain transgastric view was. The probe was brought into the mid esophagus. Inter-atrial septum was interrogated using 2D images, color Doppler images, and then contrast study. After that transesophageal echocardiogram was withdrawn out and upon withdrawing the descending thoracic aorta all the way up to the arch was evaluated. CONCLUSION: 1. Normal biventricular systolic function 2. Trileaflet aortic valve with evidence of severe aortic stenosis and mean gradient of 44 mmHg 3. Moderate mitral regurgitation. The PISA radius was 0.6 cm at aliasing velocity of 55 cm/s. 4. Intact left atrial appendage and intact interatrial septum 5. Moderate tricuspid regurgitation 6. No pericardial effusion
[2024-01-10] MEDS: LIDOCAINE 1% INJ 10MG/ML (20 ML MDV) SQ ONE (08:39)
[2024-01-10] MEDS: VERAPAMIL SYRINGE (5 MG/10 ML) INTRAARTER ONE (08:42)
[2024-01-10] MEDS: HEPARIN SODIUM 1,000 UN/ML (10ML VL) IVP ONE (08:43)
[2024-01-10] MEDS: HEPARIN SODIUM,PORCINE 10,000 UNIT in SODIUM CHLORIDE 0.9% 1,000 ML IRRIGATION ONE (08:44)
[2024-01-10] MEDS: HEPARIN SODIUM,PORCINE (1 ML) 2,500 UNIT in SODIUM CHLORIDE 0.9% 250 ML IRRIGATION ONE (08:44)
[2024-01-10] MEDS: IOPAMIDOL-370 100ML BTL INJ ONE (08:54)
[2024-01-10] MEDS ORDERED: RX INFO: IV CONTRAST WAS GIVEN 1 EACH MISC MISCELLANE PRN (08:56)
--- NOTE | 2024-01-10 08:59 | P.PCN ---
Date of Procedure: 01/10/24 Operative Findings: CARDIAC CATHETERIZATION PERFORMING PHYSICIAN: Eder Márquez MD, RPVI PROCEDURE PERFORMED: 1. Selective right and left coronary angiogram 2. Left heart catheterization 3. Ultrasound-guided access of the right radial artery INDICATION: Valvular heart disease COMPLICATION: None APPROACH: Right radial artery LEVEL OF SEDATION: Moderate with a sedation length of 12 minutes PROCEDURE DESCRIPTION: After obtaining an informed consent, the patient was brought to cardiac labeling strategist. Local anesthesia was performed using lidocaine subcutaneously. The right radial artery was cannulated using Seldinger technique, the guidewire passed easily, following that we advanced a 5-Macanese sheath dilator assembly, the wire and dilator were removed and sheath was flushed. Following that, 2 mg of verapamil along with 5000 unit heparin were given. Selective right and left coronary angiogram using a 6-Macanese JR4 and JL 3.5 catheters. Following that we did left heart catheterization using the JR4 catheter The procedure was completed there was no complication. SELECTIVE CORONARY ANGIOGRAM: The right coronary artery: Large-caliber vessel and a dominant vessel with mild to moderate disease with no evidence of high-grade stenosis Left main: Is angiographically normal The left circumflex: Large-caliber vessel nondominant vessel with mild disease only The left anterior descending artery: Large-caliber vessel with only mild disease. No high-grade stenosis was identified HEMODYNAMICS: The LVEDP was 12 mmHg and there was a 39 mmHg mean gradient across aortic valve CONCLUSION: 1. Mild to moderate nonobstructive coronary artery disease 2. Severe aortic stenosis with a mean gradient of 39 mmHg across aortic valve POSTPROCEDURE MANAGEMENT: Evaluate the patient for TAVR
[2024-01-10] MEDS ORDERED: SODIUM CHLORIDE 0.9% 1,000 ML IV SCH (09:00)
[2024-01-10] MEDS: SODIUM CHLORIDE 0.9% 500 ML 500 ML IV ONE (10:30)
[2024-01-10 14:21] VITALS: BP 148/65; PULSE 67
== END 2024-01-10 12:20 | disposition home or self-care (01) ==
LOC: CATHCVL 05:38
PROVIDERS: ATTEND Internal Medicine Interventional Cardiology
DX: I08.3 Combined rheumatic disorders of mitral, aortic and tricuspid valves (principal); I25.10 Atherosclerotic heart disease of native coronary artery without angina pectoris; I10 Essential (primary) hypertension; E78.5 Hyperlipidemia, unspecified; I48.0 Paroxysmal atrial fibrillation; I65.23 Occlusion and stenosis of bilateral carotid arteries; Z88.1 Allergy status to other antibiotic agents; Z79.01 Long term (current) use of anticoagulants; Z79.899 Other long term (current) drug therapy
CPT/HCPCS: 99152; 99153; 93312; 93320; 93325; 93458; 80048; 85025; J2250 ×2; J1644 ×3; J2003; J3010; Q9967

== ENCOUNTER → 2024-02-02 | Outpatient (CLI) | payer MEDICARE ==
[2024-02-02 10:10] LABS: ALT 17 U/L (4-34); AST 21 U/L (14-36); African American GFR (CKD) >90 (>60 ml/min/1.73 sqM); Albumin 4.9 g/dL (3.5-5.0); Albumin/Globulin Ratio 1.8; Alkaline Phosphatase 44 U/L (38-126); Anion Gap 6 mmol/L; Blood Urea Nitrogen 14 mg/dL (7-17); Calcium 9.7 mg/dL (8.4-10.2); Carbon Dioxide 28 mmol/L (22-30); Chloride 106 mmol/L (98-107); Globulin 2.7 g/dL; Glucose 120 mg/dL (74-99); Non-African American GFR(CKD) 83 (>60 ml/min/1.73 sqM); Potassium 4.2 mmol/L (3.5-5.1); Sodium 140 mmol/L (137-145); Total Bilirubin 0.7 mg/dL (0.2-1.3); Total Protein 7.6 g/dL (6.3-8.2)
[2024-02-02 10:12] LABS: ALT 17 U/L (4-34); AST 22 U/L (14-36); Albumin 4.9 g/dL (3.5-5.0); Albumin/Globulin Ratio 1.8; Alkaline Phosphatase 44 U/L (38-126); Bilirubin,Unconjugated 0.5 mg/dL (0.0-1.1); Globulin 2.7 g/dL; Total Bilirubin 0.6 mg/dL (0.2-1.3); Total Protein 7.6 g/dL (6.3-8.2); Uric Acid 3.9 mg/dL (3.7-7.4)
[2024-02-02 10:13] LABS: Appearance,Urine Cloudy (Clear); Bacteria,Urine Many /hpf; Bilirubin,Urine Negative (Negative); Blood,Urine Negative (Negative); Color,Urine Yellow; Glucose,Urine (UA) Negative (Negative); Ketones,Urine Negative (Negative); Leukocyte Esterase,Urine Large (Negative); Mucus,Urine Many /hpf; Nitrite,Urine Positive (Negative); PH, Urine 6.5 (5.0-8.0); Partial Thromboplastin Time 25.1 sec (22.0-30.0); Protein,Urine Trace (Negative); Prothrombin Time 11.2 sec (10.0-12.5); RBC,Urine 7 /hpf (0-5); Specific Gravity,Urine 1.022 (1.001-1.035); Squamous Epithelial Cell,Urine 1 /hpf (0-4); Urobilinogen,Urine <2.0 mg/dL (<2.0); WBC,Urine 181 /hpf (0-5)
[2024-02-02 10:19] LABS: NT-Pro-B-Type Natriuretic Pept 763 pg/mL
[2024-02-02 10:22] LABS: Anisocytosis Slight; Basophils % (A) 1 %; Eosinophils # (A) 0.1 k/uL (0-0.7); Eosinophils % (A) 4 %; HCT 34.4 % (34.0-46.0); HGB 10.5 gm/dL (11.4-16.0); Hypochromasia Marked; Lymphocytes # (A) 1.3 k/uL (1.0-4.8); Lymphocytes % (A) 31 %; MCH 25.4 pg (25.0-35.0); MCHC 30.7 g/dL (31.0-37.0); Mean Platelet Volume 7.4; Monocytes # (A) 0.2 k/uL (0-1.0); Monocytes % (A) 4 %; Neutrophils # (A) 2.3 k/uL (1.3-7.7); Neutrophils % (A) 57 %; Platelet Count 194 k/uL (150-450); RBC 4.15 m/uL (3.80-5.40); RDW 16.4 % (11.5-15.5); WBC 4.1 k/uL (3.8-10.6)
--- NOTE | 2024-02-02 12:12 | CT ---
EXAMINATION TYPE: CT TAVR Planning DATE OF EXAM: 02/02/2024 COMPARISON: CT chest abdomen and pelvis dated 01/24/2019 CLINICAL INDICATION: Female, 83 years old with history of I35.0 NONRHEUMATIC AORTIC (VALVE) STENOSIS; TAVR TECHNIQUE: CT scan of the Neck, chest, abdomen and pelvis is performed with IV contrast; Helical imaging obtaine d through the chest, abdomen and pelvis during arterial phase dynamic administration of radiographic contrast intravenously. CONTRAST: 150 mL of Isovue 370. CT DLP: 1594.9 mGycm, Automated exposure control for dose reduction was used. CT CTDI: mGy FINDINGS: See report from [employer] regarding preprocedural planning HEART AND PERICARDIUM: Heart is normal in size. There is no pericardial effusion. AV Calcification Severity: Mild ARTERIAL VASCULATURE: The aortic arch and thoracic aorta demonstrate a normal course and caliber. The pulmonary outflow tra ct appears within normal limits for size. The thoracic aorta is normal in course and caliber. There is no evidence of aortic dissection, aneurysm or acute aortic injury. Great arch vessels patent and n ormal in course and caliber. PULMONARY ARTERIAL VASCULATURE: Normal caliber., No evidence for central filling defect. NECK AND THYROID: No significant findings. The carotid bifurcations are patent. CHEST: LUNGS: No suspicious lung masses or nodules. No airspace consolidation. LARGE AIRWAYS: Central airways are patent. PLEURAL: No pleural effusion or thickening. No pneumothorax. MEDIASTINUM AND NANI: No mediastinal or hilar lymphadenopathy or soft tissue mass. SOFT TISSUES/LYMPH NODES: Unremarkable.Normal. MUSCULOSKELETAL: No acute osseous abnormalities ABDOMEN/PELVIS: Please note arterial phase of the imaging limits detailed evaluation of the solid abdominal organs. ABDOMEN LIVER: Unremarkable GALLBLADDER AND BILE DUCTS: Unremarkable. PANCREAS: Unremarkable. SPLEEN: Unremarkable. ADRENAL GLANDS: Unremarkable. KIDNEYS AND URETERS: No evidence of hydronephrosis or renal calculus. The ureters are unremarkable. PELVIS BLADDER: Unremarkable REPRODUCTIVE: Unremarkable. ABDOMEN & PELVIS STOMACH AND BOWEL: No evidence of bowel obstruction. PERITONEUM/RETROPERITONEUM: No evidence of pneumoperitoneum or free fluid. VASCULATURE: No evidence of aortic aneurysm. MUSCULOSKELETAL: No acute osseous abnormalities LYMPH NODES: No gross evidence for lymphadenopathy. SOFT TISSUE/ABDOMINAL WALL: Unremarkable Other Lines/Tubes/Devices/Hardware: None IMPRESSION: 1. Mild calcifications of the aortic valve. 2. No acute process. 3. See report from [employer] regarding preprocedural planning [facility], , 02/02/2024 12:10 PM
[2024-02-02 15:14] LABS: Chol/HDL Ratio 3.25 Ratio; LDL Cholesterol,Calculated 132.1 mg/dL (0.0-131.0)
== END | disposition home or self-care (01) ==
LOC: LABWHC1 09:12
PROVIDERS: ATTEND Thoracic Surgery (Cardiothoracic Vascular Surgery)
DX: Z01.818 Encounter for other preprocedural examination (principal); I35.0 Nonrheumatic aortic (valve) stenosis; E87.8 Other disorders of electrolyte and fluid balance, not elsewhere classified; E07.9 Disorder of thyroid, unspecified; R35.0 Frequency of micturition; E11.9 Type 2 diabetes mellitus without complications; N28.9 Disorder of kidney and ureter, unspecified; E78.5 Hyperlipidemia, unspecified; Z79.899 Other long term (current) drug therapy
CPT/HCPCS: 94150; 83880; 80061; 80053; 80076; 84443; 83735; 84550; 85025; 85610; 85730; 81001; 83036; 71275; 36415 ×2; 74174; Q9967

== ENCOUNTER → 2024-02-20 | Outpatient (CLI) | payer MEDICARE | END | disposition home or self-care (01) | LOC: LABPAT 15:44 | PROVIDERS: ATTEND Thoracic Surgery (Cardiothoracic Vascular Surgery) | DX: Z01.812 Encounter for preprocedural laboratory examination (principal); I35.0 Nonrheumatic aortic (valve) stenosis | CPT/HCPCS: 86850; 86900; 86901 ==

== ENCOUNTER 2024-02-22 06:44 | Inpatient (IN) | payer MEDICARE ==
[~2024-02-22 06:44] MED LIST changes: +CLEVIDIPINE BUTYRATE 25 MG in EMPTY BAG 1 BAG IV PRN; +ELECTROLYTE-A SOLUTION 1,000 ML with POTASSIUM CHLORIDE 100 MEQ, MAGNESIUM SULFATE 16 M... IV PRN; +INSULIN REGULAR 100 UNIT in SODIUM CHLORIDE 0.9% 100 ML IV PRN; +LACTATED RINGERS 1,000 ML IV SCH; +NITROGLYCERIN-D5W PMX 25 MG/250 ML BTL IV PRN; +PROTAMINE SULFATE 250 MG in EMPTY BAG 1 BAG IV PRN; +SODIUM CHLORIDE 0.9% 500 ML 500 ML INTRAARTER PRN; -SODIUM CHLORIDE 0.9% 500 ML 500 ML in EMPTY BAG 1 BAG IV PRN; +TRANEXAMIC ACID 2,000 MG in SODIUM CHLORIDE 0.9% 80 ML IV PRN; -ZOLEDRONIC ACID 5 MG in SODIUM CHLORIDE 0.9% 100 ML IV NR
[2024-02-22] MEDS: IV FLUID CONTINUATION 1,000 ML IV ONE (07:09)
[2024-02-22] MEDS: CLOPIDOGREL 75 MG TAB PO ONE (07:12)
[2024-02-22] MEDS: ATORVASTATIN 10 MG TAB PO ONE (07:12)
[2024-02-22] MEDS: ASPIRIN 325 MG TAB PO ONE (07:12)
[2024-02-22 07:14] LABS: Glucose,Whole Blood 146 mg/dL (70-110)
[2024-02-22] MEDS: IOPAMIDOL-370 100ML BTL INJ ONE (10:13)
[2024-02-22] MEDS: SODIUM CHLORIDE 0.9% 1,000 ML IV ONE (10:14)
[2024-02-22 11:19] LABS: Glucose,Whole Blood 123 mg/dL (70-110)
--- NOTE | 2024-02-22 11:19 | XR ---
EXAMINATION TYPE: XR chest 1V portable DATE OF EXAM: 02/22/2024 11:08 AM COMPARISON: 07/13/2019 CLINICAL INDICATION: Female, 83 years old with history of post TAVR, , FINDINGS: Interval placement of endovascular aortic valve replacement. Heart is borderline enlarged. Mild inter stitial prominence. Hyperinflation. No jay consolidation or pleural effusion. A pacer lead comes up from the IVC. IMPRESSION: Interval placement of endovascular aortic valve replacement. There are new interstitial densities whi ch could reflect pulmonary vascular congestion. [facility], Workstation: [facility], 02/22/2024 11:16 AM
[2024-02-22] MEDS ORDERED: hydrALAZINE HCL 20 MG/ML 1 ML VIAL IVP PRN (11:40)
[2024-02-22] MEDS: METOPROLOL TARTRATE 25 MG TAB PO ONE (11:49)
[2024-02-22] MEDS ORDERED: Potassium Replacement Protocol 1 EACH MISC MISCELLANE PRN (11:56)
[2024-02-22] MEDS ORDERED: Magnesium Replacement Protocol 1 EACH MISC MISCELLANE PRN (11:56)
[2024-02-22] MEDS ORDERED: IPRATROPIUM-ALBUTEROL 3 ML NEB INHALATION PRN (11:56)
[2024-02-22] MEDS ORDERED: CALCIUM GLUCONATE IN NACL 2 GM in SALINE 1 100ML.BAG IVPB PRN (11:56)
[2024-02-22] MEDS ORDERED: PANTOPRAZOLE 40 MG TABLET PO PRN (11:56)
[2024-02-22 12:03] LABS: Anisocytosis Slight; Hypochromasia Moderate; MCH 26.2 pg (25.0-35.0); MCHC 31.9 g/dL (31.0-37.0); MCV 82.3 fL (80.0-100.0); Mean Platelet Volume 8.3; Platelet Count 174 k/uL (150-450); RBC 3.28 m/uL (3.80-5.40); RDW 16.6 % (11.5-15.5); WBC 3.6 k/uL (3.8-10.6)
[2024-02-22 12:05] LABS: HGB 8.6 gm/dL (11.4-16.0)
[2024-02-22] MEDS: SODIUM CHLORIDE 0.9% 1,000 ML IV SCH (12:10)
[2024-02-22 12:33] LABS: African American GFR (CKD) >90 (>60 ml/min/1.73 sqM); Anion Gap 9 mmol/L; Blood Urea Nitrogen 17 mg/dL (7-17); Calcium 8.4 mg/dL (8.4-10.2); Carbon Dioxide 21 mmol/L (22-30); Chloride 110 mmol/L (98-107); Glucose 120 mg/dL (74-99); Non-African American GFR(CKD) 86 (>60 ml/min/1.73 sqM); Potassium 4.1 mmol/L (3.5-5.1); Sodium 140 mmol/L (137-145)
--- NOTE | 2024-02-22 13:27 | P.OP ---
Date of Procedure: 02/22/24 Preoperative Diagnosis: Tricuspid calcific aortic stenosis Postoperative Diagnosis: Same Procedure(s) Performed: Right percutaneous transfemoral transcatheter aortic valve replacement with 29 mm Medtronic evolute flex plus prosthesis Implants: 29 mm Evolut flex plus transcatheter aortic valve Anesthesia: GETA Surgeon: Izaiah Foss (Cardiovascular surgeon) Covering Machine Tender #1: Eder Márquez (First missile inspector preflight) Covering Machine Tender #2: Slade Harley (Second missile inspector preflight) Estimated Blood Loss (ml): 25 IV fluids (ml): 1,000 Pathology: none sent Condition: stable Disposition: PACU Indications for Procedure: 83-year-old female with symptomatic aortic stenosis. She was evaluated in the high risk valve clinic and felt to be most appropriate for transcatheter aortic valve replacement. Elective surgery was scheduled. Operative Findings: Patient was brought to the cardiac catheterization laboratory. General anesthesia was induced and she was intubated. KYE probe was placed. Anterior torso and bilateral groins were sterilely prepped and draped. Bilateral femoral arterial access and left femoral venous access were obtained under ultrasound guidance. In the left femoral vein a 18 Austrian sheath was placed and through this transvenous pacer was advanced into the right ventricle and tested. The left femoral artery a long 6 Austrian sheath was placed into this a pigtail catheter was advanced into the noncoronary sinus of Valsalva. On the right a 6 Austrian sheath was placed and then 2 Perclose devices were deployed and an 8 F rench sheath was placed. Patient was systemically heparinized and the 8 Austrian sheath was exchanged for a 14 Austrian sheath over a stiff wire in the right femoral artery. The valve was crossed from this access. Pigtail catheter was placed in the apex of the left ventricle and transvalvular gradients were measured. Safari wire was then placed in the apex of the left ventricle. 29 mm Medtronic evolute flex plus transcatheter aortic valve had been loaded on a loading catheter on the back table. This was checked under fluoroscopy. 14 Austrian sheath was exchanged for the valve delivery system and this was advanced through the vascular tree around the aortic arch and across the aortic valve. The valve was deployed under rapid ventricular pacing with deployment levels of 3 on either side. Delivery system was pulled back into the descending thoracic aorta. KYE demonstrated good expansion of the valve with no significant aortic insufficiency. There was minimal gradient across the aortic valve. Heparin was reversed with protamine and the patient was decannulated by Dr. Márquez. Patient was awakened, extubated and transferred to recovery.
[2024-02-22 13:39] VITALS: BMI 21.8
--- NOTE | 2024-02-22 13:45 | P.ANPRN ---
Procedure Note - Anesthesia - Invasive Line Right Arterial Line Time Out Performed: Yes Date of Procedure: 02/22/24 Time of Procedure: 08:50 Arterial Line Location: Briachial Ultrasound Used: Yes Purpose - Visualization and Identification of Vasculature: Yes Needle Guage: 18 Image Stored and Saved: Yes Narrative: Previous arterial line placed by SRNA and RETREAD SUPERVISOR in left brachial artery not working. Patient's right arm prepped and draped. 1% lidocaine 3 ml infiltrated. Under u/s guidance needle inserted into R brachial artery. Pulsatile blood obtained. Wire inserted and long catheter inserted over the wire. The line was sutured in place and a sterile antimicrobial dressing applied.
--- NOTE | 2024-02-22 13:49 | P.ANPRN ---
Procedure Note - Anesthesia - KYE Intraop Pre Bypass KYE Intraop - Anesthesia Indication: Aortic stenosis Date of Procedure: 02/22/24 Pre-operative Diagnosis: Aortic stenosis Post-operative Diagnosis: same Surgeon: Izaiah Foss Left Ventricle: EF 55% Ejection Fraction: Normal Regional Wall Motion Abnormalities: None Left Ventricle Hypertrophy: No R. Ventricle Function: Normal Aortic Valve: Peak 92 mmHg, Mean 46 mmHg Anatomy: Trileaflet Aortic Stenosis: Severe Aortic Regurgitation: Mild Mitral Stenosis: None Mitral Regurgitation: Mild Tricuspid Stenosis: Mild Pulmonic Stenosis: None R. Atrial Dilation: No R. Atrial PFO: No L. Atrial Dilation: No Aortic Dissection: No Aortic Calcification: Moderate Plural Effusion: None - KYE Intraop Post Bypass KYE Intraop Post Bypass Procedure Performed: TAVR Left Ventricle: EF 60% Ejection Fraction: Normal Regional Wall Motion Abnormalities: None R. Ventricle Function: Normal Aortic Valve: No perivalvular leak. Peak 12 mmHg, Mean 6 mmHg Mitral Valve: Unchanged Tricuspid: Unchanged Pulmonic: Unchanged Aortic Dissection: No
--- NOTE | 2024-02-22 14:00 | P.PCN ---
Date of Procedure: 02/22/24 Operative Findings: Transcutaneous aortic valve replacement (TAVR) Performing physician Eder Márquez MD mud engineer Nadine Harley DO mud engineer Izaiah Foss MD, cardiothoracic surgeon Procedure performed #1 successful percutaneous aortic valve replacement using 29 mm Medtronic valve with an excellent results #2 successful repair of the right common femoral artery using Perclose's device #3 ultrasound-guided access of bilateral common femoral arteries and left common femoral vein #4 successful placement of transvenous temporary pacemaker from left femoral vein approach #5 transesophageal echocardiogram was performed by anesthesia Indication Symptomatic 83-year-old female patient with symptoms of shortness of breath consistent with NYHA class II who was found to have severe aortic stenosis Approach Bilateral common femoral arteries and left common femoral vein Complication None Sedation The procedure was performed under general anesthesia Complication None Procedure description After obtaining informed consent the patient was brought to the cardiac Analysis Internship. The left common femoral vein was cannulated using micropuncture technique under ultrasound guidance a micropuncture wire passed easily then I placed a 23 cm sheath at the left common femoral vein. Subsequently under fluoroscopy guidance a balloontipped temporary pacer was advanced to the right ventricle with the pacer set up was at 5 V and 60 heart rate. Subsequently the left comm on femoral artery was cannulated using also micropuncture technique under ultrasound guidance a micropuncture wire passed easily then I placed a 55 cm 6 [place] sheath at the left common femoral artery and the sheath was advanced under fluoroscopic guidance to the proximal descending aorta. Subsequently the sheath was flushed. After that we did advance a pigtail catheter inside the sheath in the left common femoral artery to the aortic root. The SideArm of the sheath was connected into a pressure transducer and the pigtail catheter was connected into an injection tubing. Subsequently the right common femoral artery was cannulated using micropuncture technique under ultrasound guidance a micropuncture wire passed easily then a place a 6 [place] sheath at the right common femoral artery. Subsequently we deployed Perclose devices at 10 and 2:00 under fluoroscopy guidance over 035 wire. Subsequently the 6 [place] sheath was exchanged into an 8 [place] sheath. Subsequently I did exchange my 8 [place] sheath into a 14 [place] sheath using 035 stiff wire and that was safari wire. Immediately anticoagulation was initiated using heparin with continuous ACT monitoring. Subsequently the aortic valve was crossed using an AL-1 catheter with a straight 035 wire. Subsequently the AL-1 was advanced over the wire. Then the AL-1 was exchanged over a 035 wire into a pigtail catheter. Simult aneous LV and aortic root pressure performed and the gradient was performed as well and came to be consistent with severe aortic stenosis. After that the Medtronic transcatheter valve was advanced under fluoroscopy guidance after the 14 [place] sheath was removed. Please note that the valve was checked under fluoroscopy guidance before it was advanced. The valve was positioned initially partially across aortic valve with continuous injection and continuous monitoring through the KYE. The valve initially deployed partially and subsequently after multiple injection of contrast we decided to deployed the valve and the valve was deployed completely and released. Please note that was performed under fast pacing. The patient subsequently was checked using a KYE and also using aortic root injection and showed no evidence of any paravalvular leak. Subsequently valve was exchanged into the 14 [place] sheath again. Then I did close the groin using the Perclose devices with a good hemostasis confirmed by injection through a rim catheter from the left common femoral artery. The left common femoral artery itself was closed/hemostasis was achieved using an Angio-Seal. The patient tolerated the procedure very well. The procedure was performed with no complication.
[2024-02-22] MEDS: KETOROLAC 15 MG/ML 1 ML VIAL IVP PRN (14:17)
[2024-02-22] MEDS: ONDANSETRON 4 MG/2 ML VIAL IVP PRN (18:36)
[2024-02-22] MEDS: SYMBICORT 80-4.5 MCG INHALER INHALATION SCH (19:44)
[2024-02-22 20:02] LABS: Glucose,Whole Blood 142 mg/dL (70-110)
[2024-02-22] MEDS: ACETAMINOPHEN TAB 325 MG TAB PO PRN (20:49)
[2024-02-22] MEDS: SENNOSIDES-DOCUSATE SODIUM 1 EACH TAB PO SCH (20:49)
[2024-02-22] MEDS: CALCIUM CARBONATE 500 MG CHEWABLE PO SCH (20:50)
[2024-02-22] MEDS: HEPARIN SODIUM,PORCINE 5,000 UNIT/ML 1 ML VIAL SQ SCH (23:26)
[2024-02-23 05:21] LABS: Anisocytosis Slight; Basophils % (A) 0 %; Eosinophils # (A) 0.1 k/uL (0-0.7); Eosinophils % (A) 2 %; HCT 23.7 % (34.0-46.0); HGB 7.6 gm/dL (11.4-16.0); Hypochromasia Moderate; Lymphocytes # (A) 1.3 k/uL (1.0-4.8); Lymphocytes % (A) 24 %; MCH 26.4 pg (25.0-35.0); MCHC 32.2 g/dL (31.0-37.0); MCV 82.1 fL (80.0-100.0); Monocytes # (A) 0.4 k/uL (0-1.0); Monocytes % (A) 7 %; Neutrophils # (A) 3.5 k/uL (1.3-7.7); Neutrophils % (A) 65 %; Platelet Count 172 k/uL (150-450); RBC 2.89 m/uL (3.80-5.40); RDW 16.7 % (11.5-15.5); WBC 5.3 k/uL (3.8-10.6)
[2024-02-23 05:30] LABS: ALT 11 U/L (4-34); AST 22 U/L (14-36); African American GFR (CKD) >90 (>60 ml/min/1.73 sqM); Albumin 3.4 g/dL (3.5-5.0); Alkaline Phosphatase 34 U/L (38-126); Anion Gap 5 mmol/L; Blood Urea Nitrogen 17 mg/dL (7-17); Calcium 8.7 mg/dL (8.4-10.2); Carbon Dioxide 23 mmol/L (22-30); Chloride 109 mmol/L (98-107); Glucose 116 mg/dL (74-99); Magnesium 1.8 mg/dL (1.6-2.3); Non-African American GFR(CKD) 80 (>60 ml/min/1.73 sqM); Potassium 3.9 mmol/L (3.5-5.1); Sodium 137 mmol/L (137-145); Total Bilirubin 0.5 mg/dL (0.2-1.3); Total Protein 5.5 g/dL (6.3-8.2)
[2024-02-23 06:18] LABS: Glucose,Whole Blood 142 mg/dL (70-110)
[2024-02-23] MEDS: PANTOPRAZOLE 40 MG TABLET PO SCH (06:38)
--- NOTE | 2024-02-23 07:50 | XR ---
EXAMINATION TYPE: XR chest 1V portable DATE OF EXAM: 02/23/2024 5:19 AM COMPARISON: 02/22/2024 CLINICAL INDICATION: Female, 83 years old with history of Post Operative Cardiac Surgery, , FINDINGS: Endovascular aortic valve replacement again noted. Mild cardiomegaly. Hyperinflation. Mild interstiti al density persists with slight improvement. No consolidation or pleural effusion. IMPRESSION: COPD and mild cardiomegaly. Some improving pulmonary vascular congestion. [facility], Workstation: [facility], 02/23/2024 7:47 AM
[2024-02-23 08:12] VITALS: BP 150/53; TEMP 98.4
[2024-02-23] MEDS: APIXABAN 5 MG TAB PO SCH (08:38)
[2024-02-23] MEDS: METOPROLOL TARTRATE 12.5 MG TAB PO SCH (08:38)
[2024-02-23] MEDS: CHOLECALCIFEROL 25 MCG (1000 IU) TABLET PO SCH (08:38)
--- NOTE | 2024-02-23 09:47 | P.DS ---
Providers Date of admission: 02/22/24 06:44 Expected date of discharge: 02/23/24 Attending physician: Eder Márquez Consults: 02/21/24 12:26 Consult to Anesthesia Routine Consulting Provider: Anesthesia,Services Consult Reason/Comments: Cardiac Surgery Pre-Op 02/22/24 10:02 Consult Physician Routine Consulting Provider: Izaiah Foss Consult Reason/Comments: post TAVR Do you want consulting provider notified?: Already Contacted Primary care physician: Landen Weiss Hospital Course: MEDICAL HISTORY: Calcified aortic valve with severe symptomatic aortic valve stenosis, NYHA II History of mild to moderate nonobstructive coronary artery disease Hypertension Hyperlipidemia, cholesterol 229, LDL 132, triglycerides 132 Paroxysmal atrial fibrillation status post ablation on [facility] outpatient for anticoagulation Diet-controlled diabetes, hemoglobin A1c 6.4% Meningococcal meningitis in 2011 Lifelong non-smoker Mild obstructive lung disease, FEV1 56% of predicted PROCEDURE: Percutaneous aortic valve implantation using a 29 mm Medtronic Evolut FX+ under KYE and fluoroscopy guidance Successful repair of the right common femoral artery using Perclose's device Ultrasound-guided access of bilateral common femoral arteries and left common femoral vein Successful placement of transvenous temporary pacemaker from left femoral vein approach Transesophageal echocardiogram was performed by anesthesia HISTORY OF PRESENT ILLNESS: This is a 83-year-old female who follows on an outpatient basis with Dr. Weiss for primary care and Dr. Márquez for cardiology. She has a known history of severe aortic stenosis and has been symptomatic with increased exertional dyspnea as well as dizziness and occasional chest discomfort. She had been referred to structural heart clinic for evaluation for transcatheter aortic valve replacement after heart catheterization and transesophageal echocardiogram were completed. Echocardiography demonstrated normal systolic function with EF 55%, aortic valve area 1.1 cm with a peak/mean gradient 57/34 mmHg. Heart catheterization showed mild to moderate nonobstructive coronary artery disease. After workup was completed STS risk score was calculated along with incremental risk and the patient was felt to be intermediate risk for surgical aortic valve replacement, therefore transcatheter aortic valve replacement was recommended. The usual course of TAVR was discussed in detail the patient, risks and benefits were reviewed, shared decision making between cardiology, surgery, and the patient/family took place, and the patient consented to proceed with the procedure. HOSPITAL COURSE: The patient was brought to the hospital on 02/22/24, was taken to the extended stay area, prepared in the usual fashion, and subsequently taken to the cardiac catheterization laboratory where Dr. Márquez and Dr. Foss completed TAVR procedure under general anesthesia with fluoroscopy and KYE. The valve was deployed under rapid ventricular pacing and proceeded without event. At the end of the procedure there was no significant gradient, hemodynamics were felt to be acceptable, and there was no perivalvular leak. Upon completion of the p rocedure the patient was extubated and was transferred to the cardiovascular intensive care unit where she was recovered and monitored hemodynamically. Her oxygen was titrated down, she was tolerating oral diet, her pain was controlled, follow-up TTE demonstrated normal left ventricular systolic function, mean gradient 8 mmHg, no significant perivalvular leak, and she was ready to be discharged to home on postoperative day #1. She received written and verbal instruction regarding her medications, activity restrictions, signs and symptoms requiring physician notification, and follow-up appointments. Patient Condition at Discharge: Stable Plan - Discharge Summary Discharge Rx Participant: No New Discharge Prescriptions: New Acetaminophen Tab [Tylenol] 650 mg PO Q4HR PRN tab PRN Reason: Fever And/ Or Mild Pain (1-3) Sennosides-Docusate Sodium [Senokot-S] 2 each PO HS PRN tab PRN Reason: Constipation Continue Apixaban [Eliquis] 5 mg PO DAILY Omeprazole 40 mg PO DAILY PRN PRN Reason: gerd Fluticasone Propion/Salmeterol [Advair 250-50 Diskus] 1 inhalation PO BID Cholecalciferol (Vitamin D3) [Vitamin D3 (50 Mcg = 2000 Iu)] 50 mcg PO DAILY Calcium Carbonate [Calcium] 600 mg PO BID Changed Metoprolol Tartrate [Lopressor] 12.5 mg PO BID #0 Discharge Medication List Apixaban [Eliquis] 5 mg PO DAILY 01/13/17 [History] Calcium Carbonate [Calcium] 600 mg PO BID 01/09/24 [History] Cholecalciferol (Vitamin D3) [Vitamin D3 (50 Mcg = 2000 Iu)] 50 mcg PO DAILY 01/09/24 [History] Omeprazole 40 mg PO DAILY PRN 01/09/24 [History] Fluticasone Propion/Salmeterol [Advair 250-50 Diskus] 1 inhalation PO BID 02/21/24 [History] Acetaminophen Tab [Tylenol] 650 mg PO Q4HR PRN tab 02/23/24 [Rx] Metoprolol Tartrate [Lopressor] 12.5 mg PO BID #0 02/23/24 [Rx] Sennosides-Docusate Sodium [Senokot-S] 2 each PO HS PRN tab 02/23/24 [Rx] Follow up Appointment(s)/Referral(s): Eder Márquez MD [STAFF PHYSICIAN] - 03/07/24 3:30 pm (Your appointment March 07 that is for a groin check. You also have a 30-day post TAVR echocardiogram and appointment with Dr. Márquez 03/30/24 @10:45 am, as well as a 1 year post TAVR echocardiogram and appointment with Dr. Márquez 01/25/25 @1 pm) Landen Weiss DO [Primary Care Provider] - As Needed Clinic,Structural Heart [NON-STAFF] - 03/30/24 10:15 am (You have a 30-day post TAVR appointment at the TAVR clinic 03/30/24 @10:15 am before your appointment with Dr. Márquez, as well as a 1 year post TAVR appointment at the TAVR clinic 01/25/25 @12:30 pm before your appointment with Dr. Márquez) Ambulatory/Diagnostic Orders: Basic Metabolic Panel [LAB.AMB] Location: None Selected Basic Metabolic Panel [LAB.AMB] Location: None Selected Complete Blood Count w/diff [LAB.AMB] Location: None Selected Complete Blood Count w/diff [LAB.AMB] Location: None Selected Activity/Diet/Wound Care/Special Instructions: DISCHARGE INSTRUCTIONS: 1. No driving for 1 week, or until physician gives their ok. 2. No lifting, pushing, or pulling more than 5-10 pounds for 1 week. 3. Hold both groins when you cough or sneeze for the next 2 weeks. Bruising is common, but report increased swelling, pain or fever >101F 4. Shower daily. No pool, hot tub, or bathtub for 1 week 5. No powders, lotions, ointments on incisions. 6. No straining, including for bowel movements. Use stool softner if necessary 7. Stairs are not an issue. Go slowly, using handrail and take 1 step at a time. Ambulate several times daily 8. Continue pain control per as needed orders. 9. Take only the medications listed on your discharge form 10. Eat low salt (limited to 2 grams or 2000 milligrams) daily, avoid adding salt, avoid canned/processed foods 11. Take your weight daily in the morning and record, bring with you to your follow up appointments 12. Keep all follow up appointments. You will need a valve clinic appointment at 30 days and 1 year post procedure for follow up 13. You have been referred to and are expected to begin Cardiac Rehab in approximately 4 weeks. 14. You will need antibiotics prior to any dental work, including cleanings, and any surgeries to prevent Endocarditis (bacterial infection in your heart) For any questions or concerns please call your valve coordinators: Abida or Perez @ Discharge Disposition: HOME SELF-CARE
[2024-02-23 10:02] VITALS: PULSE 64; RESP 6
--- NOTE | 2024-02-23 11:58 | CA ---
Transthoracic Echo Report Name: Olivia Canales Age: 83 Gender: F : 1940 Exam Date: 02/23/2024 07:43 Exam Location: [facility] Ht (in): 64 Wt (lb): 127 Ordering Physician: Abida Strong Attending/Referring Phys: [id number], Tae Title I Director Veena Rea, RUSSELL Procedure CPT: Indications: post TAVR Cardiac Hx: 1 day post TAVR Technical Quality: Fair Contrast 1: Total Dose (mL): Contrast 2: Total Dose (mL): MEASUREMENTS (Male / Female) Normal Values 2D ECHO LV Diastolic Diameter PLAX 3.9 cm 4.2 - 5.9 / 3.9 - 5.3 cm LV Systolic Diameter PLAX 2.5 cm IVS Diastolic Thickness 1.2 cm 0.6 - 1.0 / 0.6 - 0.9 cm LVPW Diastolic Thickness 1.2 cm 0.6 - 1.0 / 0.6 - 0.9 cm LV Relative Wall Thickness 0.6 RV Internal Dim ED PLAX 2.4 cm LVOT Diameter 1.9 cm LA Systolic Diameter LX 3.1 cm 3.0 - 4.0 / 2.7 - 3.8 cm LV Diastolic Volume MOD BP 72.0 cm??? 67 - 155 / 56 - 104 cm??? LV Systolic Volume MOD BP 13.2 cm??? - 58 / 19 - 49 cm??? LV Ejection Fraction MOD BP 81.7 % >= 55 % LV Cardiac Index MOD BP 2621.9 cm???/min???m??? LV Diastolic Volume MOD 4C 72.6 cm??? LV Systolic Volume MOD 4C 16.6 cm??? LV Ejection Fraction MOD 4C 77.1 % LV Cardiac Index MOD 4C 2494.3 cm???/min???m??? LV Diastolic Length 4C 6.8 cm LV Systolic Length 4C 5.6 cm LV Diastolic Volume MOD 2C 65.4 cm??? LV Systolic Volume MOD 2C 10.6 cm??? LV Ejection Fraction MOD 2C 83.9 % LV Cardiac Index MOD 2C 2446.7 cm???/min???m??? LV Diastolic Length 2C 7.5 cm LV Systolic Length 2C 5.8 cm LA Volume 91.8 cm??? 18 - 58 / 22 - 52 cm??? LA Volume Index 56.8 cm???/m??? 16 - 28 cm???/m??? M-MODE Aortic Root Diameter MM 2.4 cm LA Systolic Diameter MM 2.9 cm LA Ao Ratio MM 1.2 DOPPLER AV Peak Velocity 183.4 cm/s AV Peak Gradient 13.4 mmHg AV Mean Velocity 130.7 cm/s AV Mean Gradient 7.6 mmHg AV Velocity Time Integral 44.3 cm LVOT Peak Velocity 153.4 cm/s LVOT Peak Gradient 9.4 mmHg LVOT Velocity Time Integral 42.6 cm LVOT Stroke Volume 123.3 cm??? LVOT Stroke Volume Index 76.4 ml/m??? LVOT Cardiac Index 5496.1 cm???/min???m??? AV Area Cont Eq vti 2.8 cm??? AV Area Cont Eq pk 2.4 cm??? MV Area PHT 3.5 cm??? Mitral E Point Velocity 112.7 cm/s Mitral A Point Velocity 97.0 cm/s Mitral E to A Ratio 1.2 MV Deceleration Time 219.0 ms TR Peak Velocity 278.1 cm/s TR Peak Gradient 30.9 mmHg Right Ventricular Systolic Press 35.8 mmHg FINDINGS Left Ventricle Left ventricular ejection fraction is estimated at 55-60%. Mildly increased septal wall thickness. Mildly increased posterior wall thickness. Normal left ventricular systolic function with no obvious regional wall motion abnormalities. Right Ventricle Mild right ventricular dilatation. Mild pulmonary hypertension. Right Atrium Mild right atrial dilatation. Left Atrium Severely increased left atrial volume. Mitral Valve Myxomatous (redundant) mitral valve. Moderate mitral regurgitation. No mitral stenosis. Aortic Valve Normally functioning bioprosthetic aortic valve without stenosis with a peak velocity of 1.8m/s, peak gradient 13mmHg, mean gradient 8mmHg, and estimated aortic valve area of 2.4cm???. No paravalvular aortic regurgitation. No central aortic regurgitation. Tricuspid Valve Structurally normal tricuspid valve. Mild tricuspid regurgitation. No tricuspid stenosis. Pulmonic Valve Structurally normal pulmonic valve. Trace pulmonic regurgitation. No pulmonic stenosis. Pericardium No pericardial or pleural effusion. Aorta Normal size aortic root and proximal ascending aorta. CONCLUSIONS LVEF 55% No obvious regional wall motion abnormality Severe LA dilatation Moderate mitral regurgitation Bioprosthetic aortic valve with mean gradient of 8 mmHg. No significant regurgitation. No PVL Previewed by: Dr Prosper Dyson (Electronically Signed) Final Date: 23 February 2024 11:56
== END 2024-02-23 11:54 | disposition home or self-care (01) | DRG 267 ==
LOC: 2ORMAIN 06:44 → 2SICU 10:57
PROVIDERS: ADMIT Internal Medicine Interventional Cardiology; ATTEND Internal Medicine Interventional Cardiology
PROC: B24BZZ4 Ultrasonography of Heart with Aorta, Transesophageal (ICD-10-PCS; 2024-02-22)
PROC: 5A1223Z Performance of Cardiac Pacing, Continuous (ICD-10-PCS; 2024-02-22)
PROC: 02RF38Z Replacement of Aortic Valve with Zooplastic Tissue, Percutaneous Approach (ICD-10-PCS; principal; 2024-02-22 08:45)
DX: I35.0 Nonrheumatic aortic (valve) stenosis (principal); Z00.6 Encounter for examination for normal comparison and control in clinical research program; E11.9 Type 2 diabetes mellitus without complications; J44.9 Chronic obstructive pulmonary disease, unspecified; I48.0 Paroxysmal atrial fibrillation; I10 Essential (primary) hypertension; I35.8 Other nonrheumatic aortic valve disorders; I25.10 Atherosclerotic heart disease of native coronary artery without angina pectoris; E78.5 Hyperlipidemia, unspecified; Z79.01 Long term (current) use of anticoagulants; Z79.51 Long term (current) use of inhaled steroids; Z86.61 Personal history of infections of the central nervous system
CPT/HCPCS: 33361; 71045; 80048; 80053; 83735; 85025; 85027; 93306; 93312; 93320; 93325; 94640